=== PATIENT | male | born 1955 | race Caucasian/White ===

== ENCOUNTER 2017-06-25 16:09 | Inpatient (IN) ==
[2017-06-25] MEDS ORDERED: 0.9 % SODIUM CHLORIDE 1,000 ML IV ONE ×2 (16:15→17:31)
[2017-06-25] MEDS ORDERED: INSULIN REGULAR, HUMAN 50 UNIT in 0.9 % SODIUM CHLORIDE 99.5 ML IV SCH ×2 (17:00→20:37)
[2017-06-25 17:03] LABS: Basophils # (Auto) 0 K/mcL (0.0-0.3); Basophils % (Auto) 0.4 % (0.0-2.0); Eosinophils # (Auto) 0 K/mcL (0.0-0.7); Eosinophils % (Auto) 0.3 % (0.0-7.0); Granulocytes % (Auto) 67.3 % (38.0-78.0); Lymphocytes % (Auto) 21.5 % (15.5-49.0); Mean Cell Volume 93.6 fL (80.0-100.0); Mean Corpuscular Hemoglobin 31.8 pg (26.0-34.0); Monocytes % (Auto) 10.5 % (1.0-12.0); Platelet Count 282 K/mcL (140-440); RBC 5.16 M/mcL (4.50-5.90); Red Cell Distribution Width 12.6 % (11.5-14.5)
[2017-06-25 17:08] LABS: ABG Methemoglobin 0.1 % (0.4-1.5); VBG Base Excess 2.1 (-2.0-2.0); VBG HCO3 27.3 mmol/L (24.0-28.0); VBG Oxygen Saturation 74.9 % (40.0-70.0); VBG PCO2 44.7 mmHg (41.0-51.0); VBG PO2 45 mmHg (25-40); VBG Total CO2 28.7 mmol/L (25.0-29.0)
--- NOTE | 2017-06-25 17:20 | Emergency Department Note ---
General Adult HPI - General Chief complaint: Blood Sugar Problem Stated complaint: high glucose Time Seen by Provider: 06/25/17 16:14 Source: patient Mode of arrival: ambulatory Limitations: no limitations - History of Present Illness HPI Narrative: Patient presents from clinic, seen by a nurse practitioner with workup earlier today. Complaining of dysphagia which is been increasing, and now highly tolerating liquids. States down 10 pounds over the last week due to decreased oral intake. Notes also in the setting of more weight loss over the last 6 months unexpected. Does have night sweats which been long-standing, seemed to be increasing. No history of dysphagia. History of type 2 diabetes. Found to have a blood glucose of greater than 700 at the clinic from labs today, called by his family nurse practitioner and encouraged to come to the ER for further evaluation. Had been in the process of setting up outpatient EGD. Otherwise in good health, his report. In increasing doses of metformin over the last several years, never well controlled from a diabetic standpoint. Several drinks of alcohol daily, quit using tobacco distantly. - Related Data Home Medications Medication Instructions Recorded Confirmed Atorvastatin [Lipitor] 20 mg PO DAILY 06/25/17 06/25/17 Chlorthalidone 25 mg PO DAILY 06/25/17 06/25/17 Cyclobenzaprine [Flexeril] 10 mg PO TIDP PRN 06/25/17 06/25/17 EPINEPHrine [Epipen] 0.3 mg IM PRN PRN 06/25/17 06/25/17 Enalapril 2.5 mg PO DAILY 06/25/17 06/25/17 HYDROcodone/APAP 10/325MG [[place] 1 - 2 tab PO Q4H PRN 06/25/17 06/25/17 10/325Mg] Nabumetone [Relafen] 750 mg PO DAILY 06/25/17 06/25/17 Pantoprazole Sodium 20 mg PO DAILY 06/25/17 06/25/17 Potassium Chloride [K-Tab ER] 20 meq PO DAILY 06/25/17 06/25/17 metFORMIN HCL [Metformin HCl ER] 500 mg PO BID 06/25/17 06/25/17 Allergies Allergy/AdvReac Type Severity Reaction Status Date / Time morphine Allergy Severe Hives Verified 06/25/17 16:15 Review of Systems All systems ED: reviewed and negative except as stated. Past Medical History - Past Medical History Attestation: Yes: The following information was validated with the patient. Medical history: Reports: diabetes Surgical history ED: Reports: hip replacement (bilateral), other (knee and shoulder arthroscopy) Family history: Reports: CAD/CO, diabetes - Social History smoking status: Former smoker Physical Exam - General Limitations: no limitations General appearance: alert, in no apparent distress - Head Head exam: atraumatic - Eye Eye exam: Present: normal appearance - ENT ENT exam: normal exam, mucous membranes moist - Neck Neck exam: Present: normal inspection. Absent: lymphadenopathy, thyromegaly - Chest Chest inspection: Present: normal inspection - Respiratory Respiratory exam: Present: normal lung sounds bilaterally. Absent: respiratory distress - Cardiovascular Cardiovascular exam: Present: regular rate, normal rhythm - Abdominal Exam Abdominal exam: Present: soft. Absent: distention, tenderness - Extremities Exam Extremities exam: Present: normal inspection - Back Exam Back exam: Present: normal inspection - Neurological Exam Neurological exam: Present: alert, oriented X3 - Psychiatric Psychiatric exam: Present: normal affect - Skin Skin exam: Present: warm, dry Course Vital Signs Temperature 98.2 F 06/25/17 16:10 Pulse Rate 95 H 06/25/17 16:10 Respiratory Rate 18 06/25/17 16:10 Blood Pressure 153/88 06/25/17 16:10 Pulse Oximetry (%) 96 06/25/17 16:10 Temperature 98.2 F 06/25/17 16:10 Pulse Rate 72 06/25/17 18:57 Respiratory Rate 16 06/25/17 18:57 Blood Pressure 128/77 06/25/17 18:46 Pulse Oximetry (%) 94 06/25/17 18:57 Medical Decision Making - Lab Data Lab results reviewed: Yes I reviewed the patient's lab results. Result diagrams: 06/25/17 16:20 06/25/17 16:21 Lab Results 06/25/17 06/25/17 06/25/17 Range/Units 16:20 16:21 16:40 WBC 9.1 (4.5-11.0) K/mcL RBC 5.16 (4.50-5.90) M/mcL Hgb 16.4 (13.5-16.5) g/dL Hct 48.3 (41.0-55.0) % POC Hct 51.0 (41.0-55.0) % MCV 93.6 (80.0-100.0) fL MCH 31.8 (26.0-34.0) pg MCHC 34.0 (31.0-36.0) g/dL RDW 12.6 (11.5-14.5) % Plt Count 282 (140-440) K/mcL MPV 10.0 (7.4-10.4) fL Gran % 67.3 (38.0-78.0) % Lymph % (Auto) 21.5 (15.5-49.0) % [place] % (Auto) 10.5 (1.0-12.0) % Eos % (Auto) 0.3 (0.0-7.0) % Baso % (Auto) 0.4 (0.0-2.0) % Gran # 6.1 (1.8-8.0) K/mcL Lymph # (Auto) 2.0 (1.5-4.8) K/mcL [place] # (Auto) 1.0 H (0.1-0.9) K/mcL Eos # (Auto) 0 (0.0-0.7) K/mcL Baso # (Auto) 0 (0.0-0.3) K/mcL ABG Methemoglobin 0.1 L (0.4-1.5) % VBG pH 7.40 (7.32-7.42) U VBG pCO2 44.7 (41.0-51.0) mmHg VBG pO2 45 H (25-40) mmHg VBG HCO3 27.3 (24.0-28.0) mmol/L VBG Total CO2 28.7 (25.0-29.0) mmol/L VBG O2 Saturation 74.9 H (40.0-70.0) % VBG Base Excess 2.1 H (-2.0-2.0) VBG Lactic Acid Carboxyhemoglobin 3.4 H (0.0-1.5) % THgb Total Hemoglobin 15.4 (13.5-16.5) gm/dL O2 Delivery Level Not Reportable POC Sodium 130 L (133-145) mmol/L Sodium 130 L (133-145) mmol/L POC Potassium 3.2 L (3.3-5.1) mmol/L Potassium 3.3 (3.3-5.1) mmol/L POC Chloride 84 L (96-108) mmol/L Chloride 82 L (96-108) mmol/L Carbon Dioxide 29 (22-30) mmol/L POC Total CO2 29 (22-30) mmol/L Anion Gap 19.0 H (8-16) POC BUN 16 (6-20) mg/dl BUN 15 (6-20) mg/dl Creatinine 1.5 H (0.7-1.2) mg/dl POC Creatinine 1.3 H (0.7-1.2) mg/dl GFR Calculation 50 Glucose 674 H* (70-105) mg/dL POC Glucose 632 H* (70-105) mg/dL Calcium 9.7 (8.6-10.4) mg/dl POC WB Ioniz Calcium 1.12 L (1.16-1.32) mmol/L Total Bilirubin 1.0 (0.0-1.0) mg/dL AST 26 (0-37) U/l ALT 51 H (0-40) U/l Alkaline Phosphatase 127 H (39-117) U/L Total Protein 8.5 H (5.9-8.4) gm/dL Albumin 5.0 (3.2-5.2) gm/dL Globulin 3.5 (2.2-3.7) gm/dL Albumin/Globulin Ratio 1.4 (1.0-2.3) Urine Color Urine Appearance Urine pH (5.0-9.0) Ur Specific Pierce (1.000-1.035) Urine Protein (NEG) mg/dL Urine Glucose (UA) (NEG) mg/dL Urine Ketones (NEG) mg/dL Urine Occult Blood (<0.03) mg/dL Urine Nitrate (NEG) Urine Bilirubin (NEG) mg/dL Urine Urobilinogen (NEG) mg/dL Ur Leukocyte Esterase (NEG) /uL Urine RBC (0-1) /hpf Urine WBC (0-4) /hpf Ur Squamous Epith Cells (0-4) /hpf Urine Bacteria (0) /hpf Ur Culture Indicated? 06/25/17 06/25/17 06/25/17 Range/Units 16:40 17:09 18:15 WBC (4.5-11.0) K/mcL RBC (4.50-5.90) M/mcL Hgb (13.5-16.5) g/dL Hct (41.0-55.0) % POC Hct (41.0-55.0) % MCV (80.0-100.0) fL MCH (26.0-34.0) pg MCHC (31.0-36.0) g/dL RDW (11.5-14.5) % Plt Count (140-440) K/mcL MPV (7.4-10.4) fL Gran % (38.0-78.0) % Lymph % (Auto) (15.5-49.0) % [place] % (Auto) (1.0-12.0) % Eos % (Auto) (0.0-7.0) % Baso % (Auto) (0.0-2.0) % Gran # (1.8-8.0) K/mcL Lymph # (Auto) (1.5-4.8) K/mcL [place] # (Auto) (0.1-0.9) K/mcL Eos # (Auto) (0.0-0.7) K/mcL Baso # (Auto) (0.0-0.3) K/mcL ABG Methemoglobin (0.4-1.5) % VBG pH (7.32-7.42) U VBG pCO2 (41.0-51.0) mmHg VBG pO2 (25-40) mmHg VBG HCO3 (24.0-28.0) mmol/L VBG Total CO2 (25.0-29.0) mmol/L VBG O2 Saturation (40.0-70.0) % VBG Base Excess (-2.0-2.0) VBG Lactic Acid TNP 1.8 Carboxyhemoglobin (0.0-1.5) % THgb Total Hemoglobin (13.5-16.5) gm/dL O2 Delivery Level POC Sodium (133-145) mmol/L Sodium (133-145) mmol/L POC Potassium (3.3-5.1) mmol/L Potassium (3.3-5.1) mmol/L POC Chloride (96-108) mmol/L Chloride (96-108) mmol/L Carbon Dioxide (22-30) mmol/L POC Total CO2 (22-30) mmol/L Anion Gap (8-16) POC BUN (6-20) mg/dl BUN (6-20) mg/dl Creatinine (0.7-1.2) mg/dl POC Creatinine (0.7-1.2) mg/dl GFR Calculation Glucose (70-105) mg/dL POC Glucose (70-105) mg/dL Calcium (8.6-10.4) mg/dl POC WB Ioniz Calcium (1.16-1.32) mmol/L Total Bilirubin (0.0-1.0) mg/dL AST (0-37) U/l ALT (0-40) U/l Alkaline Phosphatase (39-117) U/L Total Protein (5.9-8.4) gm/dL Albumin (3.2-5.2) gm/dL Globulin (2.2-3.7) gm/dL Albumin/Globulin Ratio (1.0-2.3) Urine Color Straw Urine Appearance Clear Urine pH 6.0 (5.0-9.0) Ur Specific Pierce 1.029 (1.000-1.035) Urine Protein Neg (NEG) mg/dL Urine Glucose (UA) >=500 A (NEG) mg/dL Urine Ketones 5/tr A (NEG) mg/dL Urine Occult Blood Neg (<0.03) mg/dL Urine Nitrate Neg (NEG) Urine Bilirubin Neg (NEG) mg/dL Urine Urobilinogen Neg (NEG) mg/dL Ur Leukocyte Esterase Neg (NEG) /uL Urine RBC 1 (0-1) /hpf Urine WBC < 1 (0-4) /hpf Ur Squamous Epith Cells 0 (0-4) /hpf Urine Bacteria 0 (0) /hpf Ur Culture Indicated? No Disposition Pt seen by DIRECTOR DANCE/PA only: No Clinical Impression: Acute hyperglycemia, Acute kidney injury superimposed on chronic kidney disease , Unexplained weight loss Dysphagia Qualifiers: Dysphagia type: esophageal phase Qualified Code(s): R13.14 - Dysphagia, pharyngoesophageal phase Summary: admit Dr. Singh, Dr. Hassan for EGD if this evening Disposition: Xfer As Inpt ([facility]) Condition: Fair Referrals: Sohail Dumont, LPN HOME [facility] [Primary Care Provider] -
[2017-06-25 17:23] LABS: ALT/SGPT 51 U/l (0-40); Albumin/Globulin Ratio 1.4 (1.0-2.3); Alkaline Phosphatase 127 U/L (39-117); Blood Urea Nitrogen 15 mg/dl (6-20)
[2017-06-25] MEDS: 0.9 % SODIUM CHLORIDE 1,000 ML IV SCH ×4 (17:33→22:59)
[2017-06-25 17:43] LABS: Appearance,Urine CLEAR; Bacteria,Urine 0 /hpf (0); Bilirubin,Urine NEG (NEG); Color,Urine STRAW; Glucose,Urine (UA) >=500 mg/dL (NEG); Leukocyte Esterase,Urine NEG /uL (NEG); Nitrate,Urine NEG (NEG); Protein,Urine NEG (NEG); Specific Gravity,Urine 1.029 (1.000-1.035); Urine Blood NEG mg/dL (<0.03); Urine RBC 1 /hpf (0-1); Urine Squamous Epithelial Cell 0 /hpf (0-4); Urine WBC < 1 /hpf (0-4); Urobilinogen,Urine NEG (NEG)
[2017-06-25] MEDS ORDERED: PROPOFOL 200 MG/20 ML VIAL IV ONE (19:12)
[2017-06-25] MEDS ORDERED: MIDAZOLAM 2 MG/2 ML VIAL IV ONE (19:12)
[2017-06-25] MEDS ORDERED: PROPOFOL 0 ML IV ONE (19:19)
[2017-06-25] MEDS ORDERED: MIDAZOLAM 2 MG/2 ML VIAL ONE (19:19)
[2017-06-25] MEDS ORDERED: PROPOFOL 20 ML IV ONE (19:20)
[2017-06-25 20:03] LABS: Hemoglobin A1C 12.2 % HGB (4.0-6.0)
--- NOTE | 2017-06-25 20:36 | Internal Med History&Physical ---
Medical - H&P: HPI Patient information: Note initiated : 06/25/17 at 8:35 pm Patient: Jaylon Snyder 62 y/o M admitted on 06/25/17 for high glucose. History of present illness: Mr. Snyder is a 62 year old man who was previously followed at [facility], but apparently had to leave the clinic, and is now followed by Sohail Bermeo at [facility]. He and his significant other reports that he has been having trouble with weight loss, night sweats, dysphasia for the last 1-2 months. He says he was originally treated for ulcers with ulcer medications, without much relief. He has been sent to [facility] for several imaging studies, which were reportedly negative. He reports he has lost about 50 pounds over the last 6 weeks, from 248 down to 196 pounds. He does have diabetes, but has not checked his blood sugars in about 2 months, as he said they were always well controlled before, and he was told he did not have to check. Over the weekend, he got to the point where he could not swallow any food at all, without having persistent vomiting. He therefore just started drinking sweet tea, as that seem like the only thing he could hold down. He has been feeling a little dizzy. He has continued to have cold sweats. He apparently went in to see his PCP today, and they found his blood sugar to be very elevated, and sent him to the ER for evaluation. ER evaluation showed a blood sugar of 674, low sodium and potassium and chloride , elevated creatinine, elevated anion gap. Because of his severe dysphasia, Dr. Jeffery of GI was contacted, and the patient had upper endoscopy this evening. He has possible mild esophagitis, candidal, but GI notes he really had nothing impressive and nothing that would explain persistent vomiting and weight loss. The patient is now admitted to manage his hyperglycemia and other electrolyte abnormalities. He otherwise denies overt fever, but does have sweats, both day and night. He denies headaches, new eye or ear symptoms, sore throat or cough, sinus symptoms. He says he has had some occasional left-sided chest discomfort on and off for the last 2-3 months. This is not associated with radiation, diaphoresis, shortness of breath, and often occurs at rest. He denies abdominal pain, diarrhea or constipation or bright red blood per rectum. He reports his last colonoscopy was normal about 10 years ago. He notes occasional urine hesitancy, but denies other dysuria. Past medical history: Type 2 diabetes controlled with metformin. Recent weight loss, 50 pounds. Daily alcohol use Hyperlipidemia Hypertension Chronic back pain, chronic hip pain, degenerative disc disease Past surgical history: Bilateral hip replacement, knee and shoulder arthroscopy Medications: Lipitor 20 mg daily Chlorthalidone 25 mg daily Flexeril 10 mg 3 times daily as needed EpiPen 0.3 mg IM as needed Enalapril 2.5 mg daily [place] 10/325 1-2 every 4 hours as needed Relafen 750 mg daily--he has not started this yet. Pantoprazole 20 mg daily Potassium chloride 20 mEq daily Metformin 500 mg p.o. twice daily Allergies: Morphine causes hives, bee stings cause anaphylaxis. Suboxone caused severe hives. Family history: Mother had diabetes, heart disease, chronic pain. Father had Parkinson's disease. One brother with bladder cancer and [place]. Social history: Former smoker: Patient smoked from the age of 14 until about 47 , when he quit. He drinks about 2 shots of whiskey per day most days. He uses marijuana at night as needed for sleep, but not every night. He denies use of other drugs. He lives with his significant other of 20 years. He has 1 grown daughter, who he had not seen for most of her life, but reconnected with this summer. Medical - H&P: Meds Home Medications Medication Instructions Recorded Confirmed Type Atorvastatin [Lipitor] 20 mg PO DAILY 06/25/17 06/25/17 History Chlorthalidone 25 mg PO DAILY 06/25/17 06/25/17 History Cyclobenzaprine [Flexeril] 10 mg PO TIDP PRN 06/25/17 06/25/17 History EPINEPHrine [Epipen] 0.3 mg IM PRN PRN 06/25/17 06/25/17 History Enalapril 2.5 mg PO DAILY 06/25/17 06/25/17 History HYDROcodone/APAP 10/325MG [[place] 1 - 2 tab PO Q4H PRN 06/25/17 06/25/17 History 10/325Mg] Nabumetone [Relafen] 750 mg PO DAILY 06/25/17 06/25/17 History Pantoprazole Sodium 20 mg PO DAILY 06/25/17 06/25/17 History Potassium Chloride [K-Tab ER] 20 meq PO DAILY 06/25/17 06/25/17 History metFORMIN HCL [Metformin HCl ER] 500 mg PO BID 06/25/17 06/25/17 History Allergies Allergy/AdvReac Type Severity Reaction Status Date / Time morphine Allergy Severe Hives Verified 06/25/17 16:15 Medical - H&P: Exam - Constitutional Vitals: Temp Pulse Resp BP Pulse Ox 98.2 F 72 15 111/61 96 06/25/17 16:10 06/25/17 20:08 06/25/17 20:08 06/25/17 20:08 06/25/17 20:08 Heart rate ranges from 69 -95, blood pressure ranges from 128-153/87-100, O2 saturation 96% on room air He is in no acute distress, but is a bit irritable. Head is normocephalic, atraumatic. Eyes: PERRLA, EOMI, anicteric. Ears: TMs and canals are clear. Pharynx: Is clear. He has full upper and lower plates. Mucosa appears normal. Neck: Shows no obvious lymphadenopathy, JVD, thyromegaly, bruits. Cardiac exam: Shows regular rate and rhythm with normal S1 and S2, without murmurs, rubs, gallops. Lungs: Are clear to auscultation, without rales, rhonchi, wheezes. Abdomen: Is soft and nontender with no obvious masses. Bowel sounds are normoactive. There is no guarding or rebound. Extremities: Show no cyanosis, clubbing, edema. Pulses are intact. Skin exam: Shows no worrisome rashes. Neurologic exam: Is grossly nonfocal. Medical - H&P: Reslt - Labs CBC & Chem 7: 06/25/17 16:20 06/25/17 16:21 Labs: Venous blood gas: PH 7.4, CO2 44, PO2 45, lactic acid 1.8 Arterial blood gas: PH 7.47, CO2 40, PO2 62, bicarb 29, O2 saturation 93%, on room air Hemoglobin A1c is elevated at 12% Ionized calcium is low at 1.12 ALT is elevated at 51, alk phos elevated at 127, total protein elevated at 8.5 Urinalysis shows greater than 500 glucose, 5 ketones, negative nitrites, negative leukocyte esterase, specific gravity 1.029 EKG: Normal sinus rhythm at a rate of about 80 on the left axis deviation, Upper endoscopy: Dr. Jeffery reports possible minimal Ian esophagitis, but no other important findings. Medical - H&P: A/P (1) Nonketotic hyperglycinemia Current visit: Yes Status: Acute (2) DM2 (diabetes mellitus, type 2) Current visit: Yes Status: Chronic (3) Esophagitis Current visit: Yes Status: Acute (4) REBECA (acute kidney injury) Current visit: Yes Status: Acute (5) Hypokalemia Current visit: Yes Status: Acute - Narrative A/P Narrative: #1. Nonketotic diabetic hyperglycemia, in the setting of type 2 diabetes. Patient presents with severe hyperglycemia, after drinking sweet tea all weekend , in the setting of reported dysphagia. He has numerous electrolyte abnormalities, which need to be corrected. -Admit to ICU, on insulin drip -Frequent lab monitoring correct anion gap acidosis. -Aggressive IV fluid rehydration. -Elevated hemoglobin A1c, would suggest long-term poor control of diabetes -Hold metformin until blood sugar is corrected and is rehydrated. 2. GI. Patient presents with dysphagia and ongoing weight loss and night sweats. He is status post upper endoscopy this evening, which shows possible mild/early Ina esophagitis. -Oral Diflucan, per GI -Advance diet as tolerated. Start with full liquids. -Check chest x-ray, looking for other causes of dysphagia. -Send for reports on radiologic imaging done at [facility]. 3. Renal. Acute kidney injury, likely due to dehydration. Replace potassium. Follow calcium. Hypokalemia. Hold chlorthalidone, enalapril, Relafen, to avoid further kidney irritation. Hold metformin. 4. Type 2 diabetes. Suspect that this is not controlled well over the long-term. -Hold metformin for now. -Resume Enalapril and aspirin, once renal function is back to normal. 5. DVT prophylaxis: Subcu heparin 6. CODE STATUS: Full code. 7. Hypertension -Follow. #8. Chronic pain, related to degenerative disc disease of his back, as well as chronic hip problems. Continue pain meds as needed. This visit has taken approximately 60 minutes, to review test results, review the patient's case with the ER MD as well as with GI, interview and examine the patient, review plan of care with the patient and his significant other, and write orders.
[2017-06-25] MEDS ORDERED: LORazepam 2 MG/ML VIAL IV PRN (20:37)
[2017-06-25] MEDS ORDERED: CYCLOBENZAPRINE 10 MG TABLET PO PRN (20:37)
[2017-06-25] MEDS ORDERED: NON FORMULARY MEDICATION 1 DOSE MISCELL (Epinephrine [Epipen] 0.3 MG) IM PRN (20:37)
[2017-06-25] MEDS ORDERED: MAGNESIUM HYDROXIDE 30 ML ORAL.SUSP PO PRN (20:37)
[2017-06-25] MEDS ORDERED: ACETAMINOPHEN 325 MG TABLET PO PRN (20:37)
[2017-06-25] MEDS ORDERED: NALOXONE HCL 0.4 MG/ML VIAL IV PRN (20:37)
[2017-06-25] MEDS ORDERED: POTASSIUM CHLORIDE 20 MEQ in 0.9 % SODIUM CHLORIDE 1,000 ML IV SCH (20:37)
[2017-06-25] MEDS ORDERED: DOCUSATE SODIUM 100 MG CAPSULE PO PRN (20:37)
[2017-06-25] MEDS ORDERED: ONDANSETRON 4 MG/2 ML VIAL IV PRN (20:37)
[2017-06-25] MEDS ORDERED: FLUCONAZOLE 100 MG TABLET PO ONE (20:57)
[2017-06-25] MEDS: HYDROcodone/APAP 10/325MG TABLET PO PRN (21:25)
[2017-06-25] MEDS: 0.9 % SODIUM CHLORIDE 10 ML SYRINGE IV SCH (21:28)
[2017-06-25] MEDS: HEPARIN 5,000 UNIT/ML VIAL SQ SCH (21:47)
[2017-06-25] MEDS ORDERED: DEXTROSE 50% 50 ML VIAL IV PRN (22:00)
[2017-06-25] MEDS ORDERED: DEXTROSE 31 GM ORAL.SUSP PO PRN (22:00)
[2017-06-25] MEDS ORDERED: HYDROmorphone 2 MG/ML SYRINGE IV PRN (22:03)
[2017-06-25 22:17] LABS: Ionized Calcium 1.14 mmol/L (1.16-1.32)
[2017-06-25 22:38] LABS: Blood Urea Nitrogen 14 mg/dl (6-20); proBNP < 50.0 pg/ml (0-125)
[2017-06-25] MEDS ORDERED: POTASSIUM CHLORIDE 20 MEQ/10 ML VIAL IV ONE ×2 (22:54)
[2017-06-25] MEDS ORDERED: POTASSIUM CHLORIDE 40 MEQ in DEXTROSE 5% IN WATER 500 ML IV ONE (22:59)
[2017-06-26] MEDS ORDERED: INSULIN REGULAR, HUMAN 1 UNIT/0.01 ML UNIT ONE ×2 (00:04→04:58)
[2017-06-26] MEDS: HYDROcodone/APAP 10/325MG TABLET PO PRN ×4 (00:54→14:11)
[2017-06-26] MEDS: 0.9 % SODIUM CHLORIDE 1,000 ML IV SCH (02:53)
[2017-06-26] MEDS ORDERED: DEXTROSE 5%-1/2NS W/20MEQ KCL 1,000 ML IV SCH (03:00)
[2017-06-26] MEDS: 0.9 % SODIUM CHLORIDE 10 ML SYRINGE IV SCH (06:00)
[2017-06-26 06:10] LABS: Basophils # (Auto) 0 K/mcL (0.0-0.3); Basophils % (Auto) 0.7 % (0.0-2.0); Eosinophils # (Auto) 0.1 K/mcL (0.0-0.7); Eosinophils % (Auto) 1.3 % (0.0-7.0); Granulocytes % (Auto) 46.2 % (38.0-78.0); Lymphocytes # (Auto) 2.1 K/mcL (1.5-4.8); Lymphocytes % (Auto) 39.7 % (15.5-49.0); Mean Cell Volume 94.1 fL (80.0-100.0); Mean Corpuscular HGB Conc 34.8 g/dL (31.0-36.0); Mean Corpuscular Hemoglobin 32.8 pg (26.0-34.0); Monocytes # (Auto) 0.6 K/mcL (0.1-0.9); Monocytes % (Auto) 12.1 % (1.0-12.0); Platelet Count 210 K/mcL (140-440); RBC 3.95 M/mcL (4.50-5.90); Red Cell Distribution Width 13.1 % (11.5-14.5)
[2017-06-26 06:32] LABS: ALT/SGPT 33 U/l (0-40); Albumin 3.4 gm/dL (3.2-5.2); Albumin/Globulin Ratio 1.4 (1.0-2.3); Alkaline Phosphatase 83 U/L (39-117); Bilirubin,Direct < 0.2 mg/dL (0.0-0.3); Blood Urea Nitrogen 12 mg/dl (6-20); Gamma Glutamyl Transpeptidase 129 U/L (8-61); Magnesium 1.8 mg/dL (1.6-2.5); Uric Acid 5.6 mg/dL (2.5-8.0)
[2017-06-26] MEDS ORDERED: INSULIN LISPRO 1 UNIT/0.01 ML UNIT SQ SCH (07:30)
[2017-06-26] MEDS ORDERED: PANTOPRAZOLE 40 MG TABLET PO SCH (07:30)
--- NOTE | 2017-06-26 07:30 | Operative Note ---
DATE OF OPERATION: 06/25/2017 PREOPERATIVE DIAGNOSIS: The patient is a 62-year-old white male who has a history of type 2 diabetes but it has recently gone out of control. Furthermore, he describes progressive dysphagia for 2 or more weeks. He says that in the last 4 days he has lost 10 pounds and he says that in the last 6 weeks, he has lost 50 pounds. By his appearance, he does not appear to have lost this much weight in a short amount of time, but of course I have never seen the patient before. He was seen at his primary care office today and I understand his blood sugar was in the 700 range. He was directed to go to the Emergency Room and an outpatient consult was placed for me to see the patient regarding his dysphagia. The Emergency Room physician called me today asking me to investigate the dysphagia as he is being admitted this evening to the Hospitalist Service. POSTOPERATIVE DIAGNOSIS: Mild esophageal candidiasis, but otherwise normal EGD. Dilatation was performed as described below. INFORMED CONSENT: Prior to the procedure, the patient provided his own informed consent. The patient was evaluated and considered medically fit for endoscopy. UPHOLSTERY INSTRUCTOR AND CONSULTING SERVICES MANAGER: Hugo Hassan MD ANESTHETIC USED: Propofol 200 mg IV and Versed 2 mg IV. DESCRIPTION OF PROCEDURE: With the patient in the left lateral decubitus position, a gastroscope was advanced via the mouth to the esophagus under direct vision. I was happily surprised to not find esophageal cancer, which I had feared. Instead, there is only some mild esophageal candidiasis with yellow plaques here and there on the wall the esophageal mucosa. There is no stricture, mass, ulcer, or significant hiatal hernia. No varices. The stomach was endoscopically normal including retroflexed view. The duodenum was normal to the second portion. The scope was returned to the antrum and I passed a Guidewire through the scope. I then withdrew the scope over the wire, leaving the tip of the wire at the antrum. Then I passed a 48 [place]an dilator without difficulty over the wire. I reinserted the scope and found no fracturing of the esophagus. I then used the same technique to perform 51 Singaporean dilatation. COMPLICATIONS: None immediate. RECOMMENDATIONS AND FOLLOWUP: I am going to advise starting fluconazole 200 mg orally on day 1 and then 100 mg orally on day 2 and day 3. It is okay with GI if patient's diet is advanced. I am cautiously optimistic that by bringing his blood sugar under better control that his dysphagia and his weight loss will improve. JCM:kristen Job ID: [id number] Doc ID: [id number] Hugo Dumont WHE[employer] DEPARTMENT OPERATORDebbieC
--- NOTE | 2017-06-26 07:36 | XRay Report ---
CLINICAL INFORMATION: Dysphagia weight loss and night sweats COMPARISON: None. FINDINGS:The heart size, mediastinum and pulmonary vessels are unremarkable. The lungs are clear. There are no effusions. The bones and soft tissues are within normal limits. IMPRESSION: Normal chest. Interpreted and Authenticated by: Hugo Ely 06/26/17
[2017-06-26] MEDS ORDERED: POTASSIUM CHLORIDE 40 MEQ in DEXTROSE 5% IN WATER 500 ML IV ONE (07:44)
[2017-06-26] MEDS ORDERED: POTASSIUM CHLORIDE 20 MEQ TABLET PO SCH (08:00)
[2017-06-26] MEDS ORDERED: INSULIN REGULAR, HUMAN 50 UNIT in 0.9 % SODIUM CHLORIDE 99.5 ML IV SCH (08:00)
[2017-06-26] MEDS: HEPARIN 5,000 UNIT/ML VIAL SQ SCH ×2 (08:18→08:57)
[2017-06-26] MEDS ORDERED: FLUCONAZOLE 100 MG TABLET PO SCH (09:00)
[2017-06-26] MEDS ORDERED: ATORVASTATIN 20 MG TABLET PO SCH (09:00)
[2017-06-26] MEDS: INSULIN LISPRO 1 UNIT/0.01 ML UNIT SQ SCH ×2 (09:18→12:08)
[2017-06-26] MEDS ORDERED: glipiZIDE 2.5 MG TAB.XL.24H PO SCH (10:44)
--- NOTE | 2017-06-26 12:54 | Discharge Summary ---
Medical - DS: Prov Patient information: Note initiated : 06/26/17 at 12:51 pm Patient: Jaylon Snyder 62 y/o M admitted on 06/25/17 for high glucose. Date of admission: 06/25/17 20:20 Discharge date: 06/26/17 Primary care physician: Sohail Dumont , [facility], Admitting clinician: Yuki Lomax Attending physician on discharge: Yuki Lomax Medical - DS: Meds - Discharge Medications Prescriptions: Blood-Glucose Meter [Blood Glucose Monitoring] 1 each ACHS #1 each Fluconazole [Diflucan] 100 mg PO DAILY #2 tablet glipiZIDE [Glucotrol Xl] 2.5 mg PO BIDAC #60 Insulin Glargine,Hum.rec.anlog [Lantus Solostar] 10 unit SQ QAM #1 insuln.pen Lancets [Fingerstix] 1 each ACHS #100 each Active and Home Medications: Discharge medications: Lantus insulin 10, 10 units each a.m., titrate up by 1 unit per day, to keep glucose is less than 200 Glipizide 2.5 mg twice a day, with food Tylenol 650 mg every 4 hours as needed Lipitor 20 mg nightly Flexeril 10 mg 3 times daily as needed Diflucan 100 mg every morning for 2 more days Glipizide 2.5 mg p.o. twice daily with meals [place] 10/325 1-2 every 4 hours as needed pain Protonix 40 mg p.o. every morning Potassium 20 mEq every morning Enalapril 2.5 mg every morning EpiPen as needed for bee stings Discontinue: Chlorthalidone, Relafen (nabumetone), metformin Previous home Medications: Atorvastatin [Lipitor] 20 mg PO DAILY 06/25/17 [History Confirmed 06/25/17 Last Taken Unknown] Chlorthalidone 25 mg PO DAILY 06/25/17 [History Confirmed 06/25/17 Last Taken Unknown] Cyclobenzaprine [Flexeril] 10 mg PO TIDP PRN 06/25/17 [History Confirmed Last Taken Unknown] EPINEPHrine [Epipen] 0.3 mg IM PRN PRN 06/25/17 [History Confirmed 06/25/17 Last Taken Unknown] Enalapril 2.5 mg PO DAILY 06/25/17 [History Confirmed 06/25/17 Last Taken Unknown] HYDROcodone/APAP 10/325MG [[place] 10/325Mg] 1 - 2 tab PO Q4H PRN 06/25/17 [ History Confirmed 06/25/17 Last Taken Unknown] Nabumetone [Relafen] 750 mg PO DAILY 06/25/17 [History Confirmed 06/25/17 Last Taken Unknown] Pantoprazole Sodium 20 mg PO DAILY 06/25/17 [History Confirmed 06/25/17 Last Taken Unknown] Potassium Chloride [K-Tab ER] 20 meq PO DAILY 06/25/17 [History Confirmed Last Taken Unknown] metFORMIN HCL [Metformin HCl ER] 500 mg PO BID 06/25/17 [History Confirmed 06/25 Last Taken Unknown] Medical - DS: [facility] Hospital course: Mr. Snyder is a 62 year old M June 25, 2017: History of present illness: Mr. Snyder is a 62 year old man who was previously followed at [facility], but apparently had to leave the clinic, and is now followed by Sohail Bermeo at [place]. He and his significant other reports that he has been having trouble with weight loss, night sweats, dysphasia for the last 1-2 months. He says he was originally treated for ulcers with ulcer medications, without much relief. He has been sent to [facility] for several imaging studies, which were reportedly negative. He reports he has lost about 50 pounds over the last 6 weeks, from 248 down to 196 pounds. He does have diabetes, but has not checked his blood sugars in about 2 months, as he said they were always well controlled before, and he was told he did not have to check. Over the weekend, he got to the point where he could not swallow any food at all, without having persistent vomiting. He therefore just started drinking sweet tea, as that seem like the only thing he could hold down. He has been feeling a little dizzy. He has continued to have cold sweats. He apparently went in to see his PCP today, and they found his blood sugar to be very elevated, and sent him to the ER for evaluation. ER evaluation showed a blood sugar of 674, low sodium and potassium and chloride , elevated creatinine, elevated anion gap. Because of his severe dysphasia, Dr. Jeffery of GI was contacted, and the patient had upper endoscopy this evening. He has possible mild esophagitis, candidal, but GI notes he really had nothing impressive and nothing that would explain persistent vomiting and weight loss. The patient is now admitted to manage his hyperglycemia and other electrolyte abnormalities. He otherwise denies overt fever, but does have sweats, both day and night. He denies headaches, new eye or ear symptoms, sore throat or cough, sinus symptoms. He says he has had some occasional left-sided chest discomfort on and off for the last 2-3 months. This is not associated with radiation, diaphoresis, shortness of breath, and often occurs at rest. He denies abdominal pain, diarrhea or constipation or bright red blood per rectum. He reports his last colonoscopy was normal about 10 years ago. He notes occasional urine hesitancy, but denies other dysuria. June 26: Hospital course: The patient was admitted last night after upper endoscopy, and placed on an insulin drip. Blood glucoses were checked every hour, and IV fluids adjusted accordingly. Insulin drip was discontinued this morning. The patient started on a diet as tolerated, and was encouraged to stick with mostly liquid and very soft foods, regarding his dysphasia and vomiting. Glucoses continue to range anywhere from 108-281. The patient decided he would like to discharge today, and stated he was willing to take insulin for a short time, until he and his primary care doctor can figure out his blood sugar control. He was then taught how to do Lantus injections. I will send him out on both Lantus and glipizide. I have asked him to hold the metformin for now, as I do not know if this is contributing to his nausea and vomiting symptoms. He did come in with borderline elevated lactic acid levels. -Upper endoscopy showed possible very mild Ina esophagitis, but nothing impressive, that would explain his weight loss. He has been started on Diflucan. We try to track down CT scans that he said he had done recently at [facility], but all they could find was a CT of the abdomen from June 2016, that showed mild diverticulosis. Today, the patient says he is feeling quite a bit better. He was able to eat some eggs and other liquids for breakfast. He held this down okay. Our inclusion paraeducator to come over to teach him how to use a Lantus pen. Otherwise, the patient says he has no pain other than his usual back pain. He denies fever chills, chest pain or palpitations, shortness of breath, abdominal pain. He has not had further nausea or vomiting and denies diarrhea or constipation or dysuria. On exam, vital signs are stable, with blood pressure of 120/83, heart rate 85. Neck is supple without lymphadenopathy or JVD. Cardiac exam shows regular rate and rhythm. Lungs are clear to auscultation. Abdomen is soft and nontender without obvious masses. Extremities show no edema. Neurologic exam is grossly nonfocal. Assessment and plan: #1. Nonketotic diabetic hyperglycemia, in the setting of type 2 diabetes. Patient presents with severe hyperglycemia, after drinking sweet tea all weekend , in the setting of reported dysphagia. He has numerous electrolyte abnormalities, which need to be corrected. The patient was managed on an insulin drip overnight, in the ICU. He was switched to subcu insulin with meals this morning, and then started on Lantus this afternoon. We discussed options for managing his diabetes, and I think he should withhold the metformin for now, in case that is contributing to his nausea and vomiting and weight loss. Instead, I have started him on glipizide 2.5 mg p.o. twice daily. He is to hold any of these doses if he will not be able to eat. We will also start Lantus 10 units daily, with instructions to titrate up or down, based on his blood sugars. He is encouraged to check his blood glucoses at least before meals and at bedtime over the next week or so, and bring his diary in to see his primary care provider, for review. -Elevated hemoglobin A1c, would suggest long-term poor control of diabetes -Hold metformin . 2. GI. Patient presents with dysphagia and ongoing weight loss and night sweats. He is status post upper endoscopy this evening, which shows possible mild/early Ina esophagitis. -Oral Diflucan, per GI . Chest x-ray looks okay. The patient is encouraged to follow-up with his primary care physician, and to consider follow-up with GI, in case they want to do further studies, such as manometry. It does not look like he has had a recent CT of chest abdomen and pelvis, and that should probably be done if he has documented and unexplained weight loss. 3. Renal. Acute kidney injury, likely due to dehydration. Renal function was much improved today. Hypokalemia was corrected with IV potassium. Sodium, chloride, anion gap, creatinine all corrected to normal. He is okay to resume enalapril, low-dose. I would continue to hold chlorthalidone for now. 4. Type 2 diabetes. Suspect that this is not controlled well over the long-term. -Hold metformin for now. -Resume Enalapril and aspirin, once renal function is back to normal. 5. DVT prophylaxis: Subcu heparin 6. CODE STATUS: Full code. 7. Hypertension -Follow. #8. Chronic pain, related to degenerative disc disease of his back, as well as chronic hip problems. Continue pain meds as needed. Approximately 40 minutes was spent today, reviewing test results, interviewing and examining the patient, reviewing plan of care with he and his significant other, and writing orders. Discharge diagnosis: Nonketotic hyperglycemia. Diabetes 2. Dysphagia. Weight loss. - Time Spent with Patient Total time spent providing and/or coordinating discharge services: Greater than 30 minutes Medical - DS: Exam - Constitutional Vitals: Vital Signs Temp Pulse Resp BP Pulse Ox 06/26/17 12:29 18 06/26/17 12:00 97.4 F 68 13 114/68 96 06/26/17 11:00 74 16 128/80 97 06/26/17 10:01 65 14 133/84 96 06/26/17 09:01 70 27 H 146/111 100 06/26/17 08:17 58 L 11 L 96 06/26/17 08:01 97.4 F 59 L 11 L 123/86 92 06/26/17 08:00 95 06/26/17 07:01 63 12 107/74 95 06/26/17 06:01 63 9 L 107/76 91 06/26/17 05:01 64 18 119/81 97 06/26/17 04:01 98.2 F 60 16 102/78 97 06/26/17 00:04 98.2 F 16 124/84 95 06/25/17 23:01 18 135/82 06/25/17 22:01 73 18 125/90 95 06/25/17 21:18 75 15 148/123 99 06/25/17 21:02 67 15 126/94 92 06/25/17 20:46 67 20 130/80 96 06/25/17 20:36 19 130/88 Intake and Output 06/25/17 06/26/17 06/26/17 21:59 05:59 13:59 Intake Total 1000 / 3039 2942 / 2942 918 / 918 Output Total 500 / 500 Balance 1000 / 3039 2442 / 2442 918 / 918 Intake: IV 1000 / 1000 1522 / 1522 598 / 598 Sodium Chloride 0.9% 1, 1000 / 1000 558 / 558 000 ml @ 500 mls/hr IV . Q2H JOSE Rx#:[id number] Dextrose 5%-1/2Ns W/20Meq 598 / 598 KCl 1,000 ml @ 100 mls/ hr IV .Q10H JOSE Rx#: [id number] Potassium Chloride 20 Meq 903 / 903 In Sodium Chloride 0.9% 1,000 ml @ 150 mls/hr IV .Q6H44M JOSE Rx#:[id number] Oral 900 / 900 320 / 320 IV - Manual Only 520 / 520 Output: Void Amount 500 / 500 Other: Meal Nourishment/Supplement Breakfast Percent of Meal Consumed 100% 100% Weight 201 lb 201 lb Patient Weight 06/27/17 05:59 Weight 201 lb Medical - DS: Data Labs on day of discharge: Labs from last 24 hours 06/26/17 06/26/17 06/25/17 04:11 04:11 21:06 WBC 5.4 RBC 3.95 L Hgb 12.9 L Hct 37.2 L MCV 94.1 MCH 32.8 MCHC 34.8 RDW 13.1 Plt Count 210 MPV 9.4 Gran % 46.2 Lymph % (Auto) 39.7 [place] % (Auto) 12.1 H Eos % (Auto) 1.3 Baso % (Auto) 0.7 Gran # 2.5 Lymph # (Auto) 2.1 [place] # (Auto) 0.6 Eos # (Auto) 0.1 Baso # (Auto) 0 Sodium 141 Potassium 3.1 L Chloride 102 Carbon Dioxide 29 Anion Gap 10.0 BUN 12 Creatinine 1.1 GFR Calculation 73 Glucose 120 H Uric Acid 5.6 Calcium 8.1 L Ionized Calcium Linda Phosphorus 2.8 Magnesium 1.8 Total Bilirubin 0.4 Direct Bilirubin < 0.2 GGT 129 H AST 21 ALT 33 Alkaline Phosphatase 83 Lactate Dehydrogenase 127 Troponin T < 0.01 NT-Pro-B Natriuret Pep Total Protein 5.9 Albumin 3.4 Globulin 2.5 Albumin/Globulin Ratio 1.4 Triglycerides 255 H 06/25/17 21:06 WBC RBC Hgb Hct MCV MCH MCHC RDW Plt Count MPV Gran % Lymph % (Auto) [place] % (Auto) Eos % (Auto) Baso % (Auto) Gran # Lymph # (Auto) [place] # (Auto) Eos # (Auto) Baso # (Auto) Sodium 137 Potassium 2.9 L* Chloride 92 L Carbon Dioxide 27 Anion Gap 18.0 H BUN 14 Creatinine 1.2 GFR Calculation 65 Glucose 201 H Uric Acid Calcium Ionized Calcium Linda 1.14 L Phosphorus Magnesium Total Bilirubin Direct Bilirubin GGT AST ALT Alkaline Phosphatase Lactate Dehydrogenase Troponin T NT-Pro-B Natriuret Pep < 50.0 Total Protein Albumin Globulin Albumin/Globulin Ratio Triglycerides June 25: Chemistry panel notable for: Sodium 130, potassium 3.2, chloride 84, anion gap 19, BUN 15, creatinine 1.5, glucose 674 Venous blood gas: PH 7.4, CO2 44, PO2 45, lactic acid 1.8 Arterial blood gas: PH 7.47, CO2 40, PO2 62, bicarb 29, O2 saturation 93%, on room air Hemoglobin A1c is elevated at 12% Ionized calcium is low at 1.12 ALT is elevated at 51, alk phos elevated at 127, total protein elevated at 8.5 Urinalysis shows greater than 500 glucose, 5 ketones, negative nitrites, negative leukocyte esterase, specific gravity 1.029 EKG: Normal sinus rhythm at a rate of about 80 on the left axis deviation, Upper endoscopy: Dr. Jeffery reports possible minimal Ina esophagitis, but no other important findings. Medical - DS: A/P - Patient/Caregiver Discharge Instructions Activity: increase activity as tolerated Diet: Consistent Carbohydrate, Full Liquid Additional Instructions: 1. For your swallowing problem, please follow-up with your primary care physician to continue workup for this. You should also follow-up with GI, Dr. Jeffery, about pursuing further testing, such as esophageal manometry. 2. Until you can easily swallow solid food, you should stay with a soft diet, and use liquid nutritional supplements to maintain your calorie intake. 3. For your diabetes, this was poorly controlled on admission. Please stop metformin, to see if this is contributing to nausea and vomiting. -Start glipizide 2.5 mg twice a day with food. Do not take this if you are not able to eat. -Start Lantus insulin pen. Start with 10 units every morning. Check blood glucose before each meal and at bedtime. If any of your pre-meal glucoses are running less than 100, or bedtime is running less than 140, decrease Lantus by 1 unit each day. If your blood sugars continue to run greater than 200, increase the Lantus by 1 unit each day. These follow-up with your regular doctor this or next week, to go over your blood sugar diary, and adjust your medications. #4. Please stop taking the chlorthalidone for now, as her blood pressures continue to run a bit low. Please do not take the Relafen/nabumetone, that was prescribed, as this would be hard on your kidneys and stomach. Please stop metformin. Because of your diabetes, he should continue Lipitor, enalapril, and at some point should consider adding a baby aspirin each day, to lower your risk of long -term complications of diabetes. #5. Possible esophagitis. Continue taking Diflucan for the next 2 days, to clear up any yeast infection in your esophagus. Discharge medications: Lantus insulin 10, 10 units each a.m., titrate up by 1 unit per day, to keep glucose is less than 200 Glipizide 2.5 mg twice a day, with food Tylenol 650 mg every 4 hours as needed Lipitor 20 mg nightly Flexeril 10 mg 3 times daily as needed Diflucan 100 mg every morning for 2 more days Glipizide 2.5 mg p.o. twice daily with meals [place] 10/325 1-2 every 4 hours as needed pain Protonix 40 mg p.o. every morning Potassium 20 mEq every morning Enalapril 2.5 mg every morning EpiPen as needed for bee stings Discontinue: Chlorthalidone, Relafen (nabumetone), metformin Prescriptions: Blood-Glucose Meter [Blood Glucose Monitoring] 1 each [facility] #1 each Fluconazole [Diflucan] 100 mg PO DAILY #2 tablet glipiZIDE [Glucotrol Xl] 2.5 mg PO BIDAC #60 Insulin Glargine,Hum.rec.anlog [Lantus Solostar] 10 unit SQ QAM #1 insuln.pen Lancets [Fingerstix] 1 each ACHS #100 each Other Amb Orders: Diabetes Education Referral (outpatient) Location: Determined By Patient - Problem Maintenance (1) Nonketotic hyperglycinemia Status: Acute (2) DM2 (diabetes mellitus, type 2) Status: Chronic Qualifiers: Diabetes mellitus complication status: with neurologic complications 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
[2017-06-26] MEDS ORDERED: INSULIN GLARGINE, HUMAN 1 UNIT/0.01 ML SQ ONE (13:01)
--- NOTE | 2017-06-26 14:10 | EKG Interpretations ---
INTERPRETATION: Normal sinus rhythm with frequent premature atrial contractions. Nonspecific ST segment changes. No prior tracing for a comparison. RMF:dasha Job ID: [id number] Doc ID: [id number] Seymour Kunz DO
[2017-06-27] MEDS ORDERED: PNEUMOCOCCAL 23-VAL P-SAC VAC 0.5 ML VIAL IM ONE (10:00)
== END 2017-06-26 15:15 | disposition home or self-care (01) | DRG 642 ==
LOC: ED 16:09 → SUR 19:25 → ICU 20:20
PROVIDERS: ADMIT Internal Medicine; ATTEND Internal Medicine